=== PATIENT | male | born 1970 | race African-American/Black ===

== ENCOUNTER 2018-03-02 17:13 | Emergency (ER) | payer OTHER, SELFPAY ==
[~2018-03-02 17:13] MED LIST: ISOVUE-370 76%-LOCM 1 ML ONE
[2018-03-02 18:33] LABS: #Basophils 0.1 thou/uL (0.0-0.2); #Eosinphils 0.1 thou/uL (0.0-0.7); #Lymphocytes 2.7 thou/uL (1.20-3.40); #Monocytes 0.8 thou/uL (0.11-0.59); #Neutrophils 5.9 thou/uL (1.40-6.50); %Eosinophils 1.1 % (0.0-10.0); %Lymphocytes 28.3 % (21.0-51.0); %Monocytes 7.9 % (0.0-10.0); %Neutrophils 61.7 % (42.0-75.0); Hemoglobin 16.1 g/dL (14.0-18.0); Mean Corpuscular HGB CONC 34.2 g/dL (32.0-36.0); Mean Corpuscular Hemoglobin 31.3 pg (27.0-31.0); Mean Corpuscular Volume 91.4 fL (78.0-98.0); Mean Platelet Volume 6.8 fL (7.4-10.4); Platelet Count 232 thou/uL (130-400); RBC Distribution Width 12.8 % (11.5-14.5); Red Blood Cell (RBC) Count 5.14 mill/uL (4.70-6.10); White Blood Cell (WBC) Count 9.6 thou/uL (4.8-10.8)
[2018-03-02 18:54] LABS: Anion Gap 10 mmol/L (10-20); BUN (Urea Nitrogen) 14 mg/dL (8.9-20.6); Calc. Creatinine Clearance 0 mL/min (70-130); Calcium 9.7 mg/dL (7.8-10.44); Carbon Dioxide 26 mmol/L (22-29); Chloride 108 mmol/L (98-107); Estimated GFR-MDRD 68; Glucose 75 mg/dL (70-105); Potassium 4.1 mmol/L (3.5-5.1); Sodium 140 mmol/L (136-145)
[2018-03-02] MEDS ORDERED: Lidocaine 1% PF 5 ML VIAL ONE (19:56)
--- NOTE | 2018-03-02 20:49 | CT ---
CT OF THE NECK WITH CONTRAST 03/02/18 COMPARISON: None. HISTORY: Soft tissue lesion at the angle of the mandible on the right. TECHNIQUE: Serial axial CT imaging at 2.5 mm intervals from the skull base through the lung apices with IV contr ast. Coronal and sagittal reformatted imaging obtained. FINDINGS: Imaged brain parenchyma appears grossly unremarkable. The retroantral and parapharyngeal fat is clear bilaterally. The parotid gland on the left is unremarkable. Bilateral submandibular glands are unremarkable. There is a lesion on the right at the axial level of the angle of the mandible within the subcutaneou s fat. This lesion measures 2.1 x 2.0 cm and demonstrates a thin enhancing rim. Centrally, it is of l ow density in the 15-20 Hounsfield units range. It abuts the lateral aspect of the superficial lobe o f the right parotid gland and there is mild stranding of the adjacent subcutaneous fat with adjacent skin thickening. The imaged lung apices demonstrate no acute findings. The vascular structures of the neck appear patent. There is distal right CCA atherosclerotic calcific ation. No enlarged nodes are noted on the left. There are a few mildly prominent level V nodes on the right. Review of the osseous structures demonstrates no worrisome lytic or blastic lesion. There is right si ded facet hypertrophy at C4-5. There is a prominent periapical abscess involving the left maxillary b icuspid. The tonsillar pillars, epiglottis and pre-epiglottic fat, thyroid gland, thyroid cartilage, cricoid c artilage, and hyoid bone appear grossly unremarkable. IMPRESSION: Rim enhancing hypodense lesion centered within the subcutaneous fat on the right abutting the lateral aspect of the superficial lobe of the right parotid gland. There is surrounding inflammatory change. This could represent a subcutaneous abscess or complex sebaceous cyst. Exophytic parotid lesion appe ars less likely but not excluded. An infected first branchial cleft cyst is a possibility as well. Re commend followup ENT consultation. POS: [facility]
== END 2018-03-02 20:22 | disposition home or self-care (01) ==
LOC: ERS 17:13
DX: K04.7 Periapical abscess without sinus (principal); L72.3 Sebaceous cyst; I10 Essential (primary) hypertension; F17.210 Nicotine dependence, cigarettes, uncomplicated; Z79.899 Other long term (current) drug therapy
CPT/HCPCS: 36415; 41800; 70491; 80048; 85025; J2001

== ENCOUNTER 2024-02-16 11:33 | Outpatient (CLI) | payer OTHER | END 2024-02-16 11:34 | disposition home or self-care (01) | LOC: BICRAD 11:33 | PROVIDERS: ATTEND Family Medicine | DX: M25.512 Pain in left shoulder (principal) ==